=== PATIENT | male | born 1980 | race Caucasian/White ===

== ENCOUNTER 2022-09-27 04:35 | Day surgery (SDC) | payer OTHER ==
[~2022-09-27] VITALS: Ht 160 cm; Wt 83.9 kg
[2022-09-27] VITALS (230 sets, daily range): BP systolic 76–136; BP diastolic 33–85
[2022-09-27 08:11] LABS: BASO% 0.4 % (0-3); EOS% 1.2 % (0-8); HEMATOCRIT 43.9 % (39.0-50.0); HEMOGLOBIN 14.5 g/dl (14.0-18.0); IMMATURE GRANULOCYTES 0.1 % (0.0-5.0); LYMPH% 15.4 % (15-41); MEAN CELL VOLUME 91.5 fL CALC (80.0-100.0); MEAN CORPUSCULAR HGB 30.2 pG CALC (26.0-32.0); MONO% 10.2 % (2-13); NEUT# 6.09 thou/uL (1.82-7.42); NEUT% 72.7 % (42-76); RED BLOOD COUNT 4.8 mill/uL (4.70-6.10); RED CELL DISTRI WIDTH 12.4 % (11.5-15.5)
[2022-09-27] MEDS ORDERED: BUSPAR10 MG PO (08:12)
[2022-09-27] MEDS ORDERED: PROZAC40 MG PO (08:13)
[2022-09-27] MEDS ORDERED: WELLBUTRIN XL300 MG PO (08:14)
[2022-09-27] MEDS ORDERED: ABILIFY5 MG PO (08:16)
[2022-09-27] MEDS ORDERED: SINGULAIR10 MG PO (08:16)
[2022-09-27] MEDS ORDERED: CLARITIN10 M1 PO (08:17)
[2022-09-27] MEDS ORDERED: ZANTAC 150 PO (08:17)
[2022-09-27] MEDS ORDERED: PROTONIX40 M2 PO (08:17)
[2022-09-27] MEDS ORDERED: XANAX0.5 MG PO (08:18)
[2022-09-27] MEDS ORDERED: BACTRIM DS1 TAB PO (08:18)
[2022-09-27] MEDS ORDERED: METHOCARBAMOL750 MG PO (08:19)
[2022-09-27 08:24] LABS: ALBUMIN 4.1 g/dL (3.2-5.0); ALKALINE PHOSPHATASE 44 u/l (38-126); ANION GAP 11 (6-22 (CALC)); BILIRUBIN, TOTAL 0.5 mg/dL (0.2-1.3); BUN 20 mg/dL (9-20); BUN/CREATININE RATIO 18 (12-20 (CALC)); CARBON DIOXIDE 28 mmol/l (22-30); CHLORIDE 102 mmol/l (95-108); CREATININE 1.1 mg/dL (0.7-1.3); GFR FOR AFR.AMER. > 60 ML/MIN (>=60 (CALC)); GFR OTHER RACES > 60 ML/MIN (>=60 (CALC)); POTASSIUM 3.9 mmol/l (3.5-5.1); SGOT/AST 35 u/l (17-59); SODIUM 136 mmol/l (137-146); TOTAL PROTEIN 6.5 g/dL (6.3-8.2)
[2022-09-27] MEDS ORDERED: KLONOPIN2 MG PO (15:38)
[2022-09-28 04:41] VITALS: BP 118/63
[2022-09-28 05:15] LABS: BASO% 0.1 % (0-3); HEMATOCRIT 44.4 % (39.0-50.0); HEMOGLOBIN 14.9 g/dl (14.0-18.0); IMMATURE GRANULOCYTES 0.1 % (0.0-5.0); LYMPH% 7.2 % (15-41); MEAN CELL VOLUME 90.8 fL CALC (80.0-100.0); MEAN CORPUSCULAR HGB 30.5 pG CALC (26.0-32.0); MEAN CORPUSCULAR HGB CONC 33.6 g/dL CAL (32.0-36.0); NEUT# 10.5 thou/uL (1.82-7.42); NEUT% 89.6 % (42-76); RED BLOOD COUNT 4.89 mill/uL (4.70-6.10); RED CELL DISTRI WIDTH 12.1 % (11.5-15.5)
[2022-09-28 05:30] LABS: ALBUMIN 4.2 g/dL (3.2-5.0); ALKALINE PHOSPHATASE 45 u/l (38-126); ANION GAP 13 (6-22 (CALC)); BUN 12 mg/dL (9-20); BUN/CREATININE RATIO 10 (12-20 (CALC)); CARBON DIOXIDE 24 mmol/l (22-30); CHLORIDE 106 mmol/l (95-108); CREATININE 1.1 mg/dL (0.7-1.3); GFR FOR AFR.AMER. > 60 ML/MIN (>=60 (CALC)); GFR OTHER RACES > 60 ML/MIN (>=60 (CALC)); MAGNESIUM 2.2 mg/dL (1.6-2.3); POTASSIUM 4.1 mmol/l (3.5-5.1); SGOT/AST 30 u/l (17-59); SODIUM 139 mmol/l (137-146); TOTAL PROTEIN 6.5 g/dL (6.3-8.2)
[2022-09-28 06:30] LABS: BILIRUBIN, TOTAL 0.9 mg/dL (0.2-1.3)
[2022-09-28 07:30] VITALS: BP 102/58
[2022-09-28 18:53] VITALS: BP 110/61
[2022-09-28 19:05] VITALS: BP 110/61
[2022-09-29 03:59] VITALS: BP 124/73
[2022-09-29 05:07] LABS: BASO% 0.1 % (0-3); HEMATOCRIT 40.4 % (39.0-50.0); HEMOGLOBIN 13.7 g/dl (14.0-18.0); IMMATURE GRANULOCYTES 0.1 % (0.0-5.0); LYMPH% 11.9 % (15-41); MEAN CORPUSCULAR HGB 30.5 pG CALC (26.0-32.0); MEAN CORPUSCULAR HGB CONC 33.9 g/dL CAL (32.0-36.0); MONO% 7.2 % (2-13); NEUT# 10.35 thou/uL (1.82-7.42); NEUT% 80.7 % (42-76); RED BLOOD COUNT 4.49 mill/uL (4.70-6.10); RED CELL DISTRI WIDTH 12.5 % (11.5-15.5)
[2022-09-29 05:22] LABS: ALBUMIN 3.6 g/dL (3.2-5.0); ALKALINE PHOSPHATASE 39 u/l (38-126); ANION GAP 11 (6-22 (CALC)); BILIRUBIN, TOTAL 0.7 mg/dL (0.2-1.3); BUN 10 mg/dL (9-20); BUN/CREATININE RATIO 11 (12-20 (CALC)); CARBON DIOXIDE 22 mmol/l (22-30); CHLORIDE 110 mmol/l (95-108); GFR FOR AFR.AMER. > 60 ML/MIN (>=60 (CALC)); GFR OTHER RACES > 60 ML/MIN (>=60 (CALC)); MAGNESIUM 1.9 mg/dL (1.6-2.3); POTASSIUM 3.6 mmol/l (3.5-5.1); SGOT/AST 26 u/l (17-59); SODIUM 139 mmol/l (137-146); TOTAL PROTEIN 5.9 g/dL (6.3-8.2)
[2022-09-29 07:51] VITALS: BP 132/82
== END 2022-09-29 10:15 | disposition home or self-care (01) | DRG 897 ==
LOC: MS2 04:35 → ANR 04:35 → MS2 19:21 → ANR 09-29 10:15
PROVIDERS: ATTEND Anesthesiology
DX: F11.20 Opioid dependence, uncomplicated (principal)
CPT/HCPCS: J0131; J2060; J3475